=== PATIENT | male | born 1985 ===

== ENCOUNTER → 2018-01-05 | Outpatient (REF) | payer OTHER ==
[2018-01-05 12:29] LABS: SEMEN APPEARANCE OPAQUE (OPAQUE); SEMEN VISCOSITY LIQUID (LIQUID); SEMEN VOLUME 2.5 ml (4.0-5.0); SEMEN pH 8.5 (7.0-8.0); SPERM ABNORMAL FORMS WBC'S NOTED
[2018-01-05 12:30] LABS: % NORMAL FORMS < 4 % (>=4); IMMOTILITY 93 %; NON PROGRESSIVE MOTILITY (c) 5 %; PROGRESSIVE MOTILITY (a) 2 % (>=32); SPERM CONCENTRATION 61.8 M/ml (>=15.0); SPERM# 154.6 M/Ejac (>=39); TOTAL FUNCTIONAL 0.2 M/Ejac.; TOTAL MOTILITY 7 % (>=40); TOTAL PROGRESSIVE SPERM 3.3 M/Ejac.; WBC CONCENTRATION <=1 M/ml (<=1 M/ml)
== END ==
LOC: M LAB REF 12:15
DX: Z31.41 Encounter for fertility testing (principal)

== ENCOUNTER → 2018-02-26 | Outpatient (REF) | payer OTHER ==
[2018-02-26 10:57] LABS: SEMEN APPEARANCE OPAQUE (OPAQUE); SEMEN VISCOSITY LIQUID (LIQUID); SEMEN VOLUME 2.8 ml (4.0-5.0); SEMEN pH 8.5 (7.0-8.0); SPERM ABNORMAL FORMS WBC'S NOTED
[2018-02-26 10:58] LABS: % NORMAL FORMS 11 % (>=4); IMMOTILITY 40 %; NON PROGRESSIVE MOTILITY (c) 15 %; PROGRESSIVE MOTILITY (a) 45 % (>=32); SPERM# 75.5 M/Ejac (>=39); TOTAL FUNCTIONAL 8.3 M/Ejac.; TOTAL MOTILITY 60 % (>=40); TOTAL PROGRESSIVE SPERM 33.7 M/Ejac.; WBC CONCENTRATION >1 M/ml (<=1 M/ml)
== END ==
LOC: M LAB REF 09:42
DX: N46.9 Male infertility, unspecified (principal)

== ENCOUNTER → 2018-08-20 | Outpatient (REF) | payer OTHER ==
[2018-08-20 10:52] LABS: SEMEN APPEARANCE OPAQUE (OPAQUE); SEMEN VISCOSITY LIQUID (LIQUID); SEMEN VOLUME 2.6 ml (4.0-5.0); SEMEN pH 8.5 (7.0-8.0); WBC CONCENTRATION >1 M/ml (<=1 M/ml)
[2018-08-20 10:54] LABS: SPERM CONCENTRATION 23.1 M/ml (>=15.0)
== END ==
LOC: M LAB REF 09:16
PROVIDERS: ATTEND Obstetrics & Gynecology
DX: N46.9 Male infertility, unspecified (principal)